=== PATIENT | female | born 1950 | race African-American/Black ===

== ENCOUNTER 2023-09-22 14:49 | Outpatient (CLI) | payer MEDICARE | END 2023-09-22 14:50 | disposition home or self-care (01) | LOC: ULT 14:49 | PROVIDERS: ATTEND Nurse Practitioner Family | DX: M79.662 Pain in left lower leg (principal) ==

== ENCOUNTER 2025-02-25 10:58 | Outpatient (CLI) | payer MEDICARE | END 2025-02-25 10:59 | disposition home or self-care (01) | LOC: SCSBT 10:58 | PROVIDERS: ATTEND Family Medicine | DX: Z13.820 Encounter for screening for osteoporosis (principal); Z78.0 Asymptomatic menopausal state | CPT/HCPCS: 77080 ==